=== PATIENT | female | born 1955 | race Caucasian/White ===

== ENCOUNTER 2018-02-16 11:53 | Emergency (ER) | payer MEDICAID ==
[~2018-02-16] VITALS: Ht 162.6 cm; Wt 115.5 kg
[~2018-02-16 11:53] MED LIST: ALBU8.5H4 IH
[2018-02-16 11:59] VITALS: BP 160/94
[2018-02-16] MEDS ORDERED: ibuprofen tablet 400 MG TABLET PO ONE (12:20)
== END 2018-02-16 13:32 | disposition home or self-care (01) ==
LOC: ER 11:53
DX: M25.562 Pain in left knee (principal); Z79.899 Other long term (current) drug therapy
CPT/HCPCS: 93971; 99284

== ENCOUNTER 2018-08-23 11:11 | Emergency (ER) | payer MEDICARE, MEDICAID ==
[~2018-08-23] VITALS: Ht 162.6 cm; Wt 117.5 kg
[2018-08-23 11:21] VITALS: BP 179/104
[2018-08-23] MEDS ORDERED: benzonatate 100mg capsule PO ONE (12:25)
[2018-08-23] MEDS ORDERED: azithromycin 250mg tablet PO ONE (12:25)
[2018-08-23] MEDS ORDERED: oseltamivir phos 75mg capsule PO ONE (12:25)
[2018-08-23] MEDS ORDERED: AZIT-63 PO (12:52)
[2018-08-23] MEDS ORDERED: TAM75C PO (12:52)
[2018-08-23] MEDS ORDERED: BENZ-49 PO (12:52)
== END 2018-08-23 13:10 | disposition home or self-care (01) ==
LOC: ER 11:12
DX: J20.9 Acute bronchitis, unspecified (principal); J11.1 Influenza due to unidentified influenza virus with other respiratory manifestations; Z98.890 Other specified postprocedural states; Z79.2 Long term (current) use of antibiotics; Z79.899 Other long term (current) drug therapy
CPT/HCPCS: 71046; 99284